=== PATIENT | female | born 1940 | race Caucasian/White ===

== ENCOUNTER 2017-09-21 15:04 | Inpatient (IN) ==
[2017-09-21] MEDS ORDERED: ALBUTEROL/IPRATROPIUM 3 ML NEB RESP TX PRN (15:09)
[2017-09-21] MEDS ORDERED: AMINOPHYLLINE 250 MG in SODIUM CHLORIDE 0.9% 100 ML IV ONE (17:00)
[2017-09-21 17:15] LABS: Basophils # 0.1 10*3/uL (0.0-0.2); Basophils % 0.8 % (0.0-0.8); Eosinophils # 0.1 10*3/uL (0.0-0.87); Eosinophils % 0.8 % (0.00-10.9); Hematocrit 41.9 VOL% (35.7-47.0); Hemoglobin 13.6 GM/DL (12.0-16.0); Immature Granulocytes % 0.6 %; Immature Granulocytes Absolute 0.04 #; Lymphocytes # 0.9 10*3/uL (1.4-4.0); Lymphocytes % 13.5 % (21.3-54.2); Mean Corpuscular HGB Conc 32.5 GM/DL (32-36); Mean Corpuscular Hemoglobin 29 PG (27-34); Mean Corpuscular Volume 90.7 FL (87-102); Monocytes # 0.4 10*3/uL (0.11-0.8); Neutrophils # 4.9 10*3/uL (1.4-7.4); Neutrophils % 78.3 % (38.7-73.9); Platelet Count 187 T/CUMM (130-400); Red Blood Count 4.62 MC/CUMM (3.8-5.5); Red Cell Distribution Width 14.9 % (9.3-17.3); White Blood Count 6.3 T/CUMM (4-12)
[2017-09-21 17:49] LABS: Alanine Aminotransferase 21 U/L (13-56); Albumin 3.8 G/DL (3.4-5.0); Alkaline Phosphatase 86 U/L (45-117); Aspartate Amino Transferase 18 U/L (0-37); Bilirubin,Total < 0.39 MG/DL (0.2-1.0); Blood Urea Nitrogen 7 MG/DL (7-18); Calcium 8.8 MG/DL (8.5-10.1); Glucose 187 MG/DL (74-106); Osmolality,Calculated 270.2 MOS/KG (273-304); Potassium 4.5 MMOL/L (3.5-5.1); Sodium 134 MMOL/L (136-145); Thyroid Stimulating Hormone 0.611 uIU/ml (0.358-3.74); Total Protein 7.1 G/DL (6.4-8.3)
[2017-09-21] MEDS: DORNASE ALFA 2.5 MG/2.5 ML VIAL RESP TX SCH (20:28)
[2017-09-21] MEDS: ALBUTEROL/IPRATROPIUM 3 ML NEB RESP TX SCH (20:28)
[2017-09-21] MEDS: cefTAZidime 1,000 MG in SYRINGE 1 EACH IV SCH (21:15)
[2017-09-21] MEDS: methylPREDNISolone SOD SUC 40 MG/1 ML VIAL IV SCH (21:18)
[2017-09-21] MEDS: LEVOFLOXACIN INJ 500 MG in PREMIX 1 EACH IV SCH (21:22)
[2017-09-21] MEDS: DEXTROSE 5% NACL 0.45% 1,000 ML IV SCH (21:22)
[2017-09-21] MEDS: TEMAZEPAM 15 MG CAPSULE PO SCH (21:24)
[2017-09-21] MEDS: BENZONATATE 100 MG CAPSULE PO SCH (21:25)
[2017-09-21] MEDS: MONTELUKAST 10 MG TABLET PO SCH (21:25)
[2017-09-22] MEDS: AMINOPHYLLINE 500 MG in SODIUM CHLORIDE 0.9% 480 ML IV SCH ×2 (01:10→20:31)
[2017-09-22 05:08] LABS: Basophils % 0.2 % (0.0-0.8); Hematocrit 41.3 VOL% (35.7-47.0); Hemoglobin 13.6 GM/DL (12.0-16.0); Immature Granulocytes % 0.6 %; Immature Granulocytes Absolute 0.03 #; Lymphocytes % 19.6 % (21.3-54.2); Mean Corpuscular HGB Conc 32.9 GM/DL (32-36); Mean Corpuscular Hemoglobin 30 PG (27-34); Mean Corpuscular Volume 89.6 FL (87-102); Mean Platelet Volume 9.5 FL (9.6-12.0); Monocytes # 0.1 10*3/uL (0.11-0.8); Monocytes % 2.2 % (1.7-12.7); Neutrophils # 3.8 10*3/uL (1.4-7.4); Neutrophils % 77.4 % (38.7-73.9); Platelet Count 238 T/CUMM (130-400); Red Blood Count 4.61 MC/CUMM (3.8-5.5); Red Cell Distribution Width 14.7 % (9.3-17.3); White Blood Count 4.9 T/CUMM (4-12)
[2017-09-22 05:40] LABS: Calcium 9.2 MG/DL (8.5-10.1); Osmolality,Calculated 275.8 MOS/KG (273-304); Potassium 4.4 MMOL/L (3.5-5.1)
[2017-09-22] MEDS: methylPREDNISolone SOD SUC 40 MG/1 ML VIAL IV SCH ×3 (05:58→20:30)
[2017-09-22] MEDS: cefTAZidime 1,000 MG in SYRINGE 1 EACH IV SCH ×3 (06:00→20:30)
[2017-09-22 06:11] LABS: Apearance,Urine CLEAR (Clear); Bilirubin,Urine Negative (Negative); Blood, Urine Negative (Negative); Glucose,Urine (UA) Negative (Negative); Ketones,Urine Negative (Negative); Nitrite,Urine Negative (Negative); Protein,Urine Negative; RBC,Urine <1 /HPF (0-4); Urine Color Yellow (Yellow); Urine Specific Gravity 1.008 (1.001-1.035); WBC,Urine <1 /HPF (0-6)
[2017-09-22] MEDS: DORNASE ALFA 2.5 MG/2.5 ML VIAL RESP TX SCH ×2 (07:20→19:37)
[2017-09-22] MEDS: ALBUTEROL/IPRATROPIUM 3 ML NEB RESP TX SCH ×4 (07:20→19:37)
[2017-09-22] MEDS: MONTELUKAST 10 MG TABLET PO SCH ×2 (08:32→20:29)
[2017-09-22] MEDS: BENZONATATE 100 MG CAPSULE PO SCH ×3 (08:32→20:29)
[2017-09-22] MEDS ORDERED: NITROGLYCERIN SL 0.4 MG TABLET SL PRN (11:15)
[2017-09-22] MEDS: ALBUTEROL 2 MG TABLET PO SCH ×3 (11:41→21:34)
[2017-09-22] MEDS: amLODIPine 5 MG TABLET PO SCH (11:41)
[2017-09-22] MEDS: FLUTICASONE 50 MCG NASAL SPRAY 16 GM BOTTLE BOTH NARES SCH (12:44)
[2017-09-22] MEDS: DEXTROSE 5% NACL 0.45% 1,000 ML IV SCH (14:43)
[2017-09-22] MEDS: TEMAZEPAM 15 MG CAPSULE PO SCH (20:29)
[2017-09-22] MEDS: ATORVASTATIN 10 MG TABLET PO SCH (20:29)
[2017-09-22] MEDS: LEVOFLOXACIN INJ 500 MG in PREMIX 1 EACH IV SCH (21:51)
[2017-09-23] MEDS: AMINOPHYLLINE 500 MG in SODIUM CHLORIDE 0.9% 480 ML IV SCH ×2 (00:07→21:38)
[2017-09-23] MEDS: cefTAZidime 1,000 MG in SYRINGE 1 EACH IV SCH ×3 (05:45→21:39)
[2017-09-23] MEDS: ALBUTEROL 2 MG TABLET PO SCH ×3 (05:45→21:39)
[2017-09-23] MEDS: methylPREDNISolone SOD SUC 40 MG/1 ML VIAL IV SCH ×3 (05:45→21:40)
[2017-09-23] MEDS: LEVOTHYROXINE 88 MCG TABLET PO SCH (05:45)
[2017-09-23] MEDS: ALBUTEROL/IPRATROPIUM 3 ML NEB RESP TX SCH ×4 (07:13→19:21)
[2017-09-23] MEDS: DORNASE ALFA 2.5 MG/2.5 ML VIAL RESP TX SCH ×2 (07:13→19:21)
[2017-09-23] MEDS: BENZONATATE 100 MG CAPSULE PO SCH ×3 (08:14→21:39)
[2017-09-23] MEDS: DEXTROSE 5% NACL 0.45% 1,000 ML IV SCH (08:14)
[2017-09-23] MEDS: amLODIPine 5 MG TABLET PO SCH (08:14)
[2017-09-23] MEDS: MONTELUKAST 10 MG TABLET PO SCH ×2 (08:15→21:39)
[2017-09-23] MEDS: PANTOPRAZOLE 40 MG TABLET PO SCH (08:15)
[2017-09-23] MEDS: FLUTICASONE 50 MCG NASAL SPRAY 16 GM BOTTLE BOTH NARES SCH (08:16)
[2017-09-23] MEDS ORDERED: SODIUM CHLORIDE 0.9% 100 ML IV ONE (19:47)
[2017-09-23] MEDS: TEMAZEPAM 15 MG CAPSULE PO SCH (21:39)
[2017-09-23] MEDS: ATORVASTATIN 10 MG TABLET PO SCH (21:39)
[2017-09-23] MEDS: LEVOFLOXACIN INJ 500 MG in PREMIX 1 EACH IV SCH (22:57)
[2017-09-24] MEDS: DEXTROSE 5% NACL 0.45% 1,000 ML IV SCH ×2 (00:23→17:09)
[2017-09-24] MEDS ORDERED: SODIUM CHLORIDE 0.9% 100 ML IV ONE (05:29)
[2017-09-24] MEDS: LEVOTHYROXINE 88 MCG TABLET PO SCH (05:46)
[2017-09-24] MEDS: ALBUTEROL 2 MG TABLET PO SCH ×3 (05:46→21:11)
[2017-09-24] MEDS: cefTAZidime 1,000 MG in SYRINGE 1 EACH IV SCH ×3 (05:47→21:12)
[2017-09-24] MEDS: methylPREDNISolone SOD SUC 40 MG/1 ML VIAL IV SCH ×3 (05:47→21:12)
[2017-09-24] MEDS: DORNASE ALFA 2.5 MG/2.5 ML VIAL RESP TX SCH ×2 (07:32→19:50)
[2017-09-24] MEDS: ALBUTEROL/IPRATROPIUM 3 ML NEB RESP TX SCH ×4 (07:32→19:50)
[2017-09-24] MEDS: MONTELUKAST 10 MG TABLET PO SCH ×2 (09:35→21:12)
[2017-09-24] MEDS: BENZONATATE 100 MG CAPSULE PO SCH ×3 (09:35→21:12)
[2017-09-24] MEDS: PANTOPRAZOLE 40 MG TABLET PO SCH (09:35)
[2017-09-24] MEDS: amLODIPine 5 MG TABLET PO SCH (09:35)
[2017-09-24] MEDS: FLUTICASONE 50 MCG NASAL SPRAY 16 GM BOTTLE BOTH NARES SCH (09:36)
[2017-09-24] MEDS: ATORVASTATIN 10 MG TABLET PO SCH (21:12)
[2017-09-24] MEDS: TEMAZEPAM 15 MG CAPSULE PO SCH (21:12)
[2017-09-24] MEDS: LEVOFLOXACIN INJ 500 MG in PREMIX 1 EACH IV SCH (22:19)
[2017-09-25] MEDS: LEVOTHYROXINE 88 MCG TABLET PO SCH (05:35)
[2017-09-25] MEDS: ALBUTEROL 2 MG TABLET PO SCH ×4 (05:35→22:12)
[2017-09-25] MEDS: cefTAZidime 1,000 MG in SYRINGE 1 EACH IV SCH ×3 (05:35→20:32)
[2017-09-25] MEDS: methylPREDNISolone SOD SUC 40 MG/1 ML VIAL IV SCH ×3 (05:35→20:37)
[2017-09-25] MEDS: ALBUTEROL/IPRATROPIUM 3 ML NEB RESP TX SCH ×4 (07:59→19:44)
[2017-09-25] MEDS: DORNASE ALFA 2.5 MG/2.5 ML VIAL RESP TX SCH ×2 (08:01→19:58)
[2017-09-25] MEDS: FLUTICASONE 50 MCG NASAL SPRAY 16 GM BOTTLE BOTH NARES SCH (08:41)
[2017-09-25] MEDS: amLODIPine 5 MG TABLET PO SCH (08:42)
[2017-09-25] MEDS: MONTELUKAST 10 MG TABLET PO SCH ×2 (08:42→20:34)
[2017-09-25] MEDS: BENZONATATE 100 MG CAPSULE PO SCH ×3 (08:42→20:33)
[2017-09-25] MEDS: DEXTROSE 5% NACL 0.45% 1,000 ML IV SCH (08:42)
[2017-09-25] MEDS: PANTOPRAZOLE 40 MG TABLET PO SCH (08:42)
[2017-09-25] MEDS: DICLOFENAC 1.3% PATCH 5/PACK TRANSDERM SCH ×2 (11:57→20:35)
[2017-09-25] MEDS: AMINOPHYLLINE 500 MG in SODIUM CHLORIDE 0.9% 480 ML IV SCH (11:57)
[2017-09-25] MEDS: TEMAZEPAM 15 MG CAPSULE PO SCH (20:34)
[2017-09-25] MEDS: ATORVASTATIN 10 MG TABLET PO SCH (20:34)
[2017-09-25] MEDS: LEVOFLOXACIN INJ 500 MG in PREMIX 1 EACH IV SCH (21:42)
[2017-09-26] MEDS: DEXTROSE 5% NACL 0.45% 1,000 ML IV SCH ×2 (03:52→05:19)
[2017-09-26] MEDS: methylPREDNISolone SOD SUC 40 MG/1 ML VIAL IV SCH ×3 (05:17→21:41)
[2017-09-26] MEDS: ALBUTEROL 2 MG TABLET PO SCH ×2 (05:17→14:55)
[2017-09-26] MEDS: LEVOTHYROXINE 88 MCG TABLET PO SCH ×2 (05:17→06:15)
[2017-09-26] MEDS: cefTAZidime 1,000 MG in SYRINGE 1 EACH IV SCH ×3 (05:18→21:47)
[2017-09-26] MEDS: ALBUTEROL/IPRATROPIUM 3 ML NEB RESP TX SCH ×4 (07:43→19:20)
[2017-09-26] MEDS: DORNASE ALFA 2.5 MG/2.5 ML VIAL RESP TX SCH ×2 (08:00→19:27)
[2017-09-26] MEDS: MONTELUKAST 10 MG TABLET PO SCH ×2 (09:51→21:40)
[2017-09-26] MEDS: BENZONATATE 100 MG CAPSULE PO SCH ×3 (09:51→21:40)
[2017-09-26] MEDS: amLODIPine 5 MG TABLET PO SCH (09:51)
[2017-09-26] MEDS: DICLOFENAC 1.3% PATCH 5/PACK TRANSDERM SCH (09:51)
[2017-09-26] MEDS: PANTOPRAZOLE 40 MG TABLET PO SCH (09:51)
[2017-09-26] MEDS: FLUTICASONE 50 MCG NASAL SPRAY 16 GM BOTTLE BOTH NARES SCH (09:51)
[2017-09-26] MEDS ORDERED: MAGNESIUM HYDROXIDE SUSP 30 ML UDCUP PO PRN (09:54)
[2017-09-26] MEDS ORDERED: KETOROLAC 15 MG/1 ML VIAL IV ONE (10:53)
[2017-09-26] MEDS: AMINOPHYLLINE 500 MG in SODIUM CHLORIDE 0.9% 480 ML IV SCH (18:15)
[2017-09-26] MEDS: TEMAZEPAM 15 MG CAPSULE PO SCH (21:40)
[2017-09-26] MEDS: ATORVASTATIN 10 MG TABLET PO SCH (21:41)
[2017-09-26] MEDS: LEVOFLOXACIN INJ 500 MG in PREMIX 1 EACH IV SCH (21:52)
[2017-09-27] MEDS: DICLOFENAC 1.3% PATCH 5/PACK TRANSDERM SCH ×4 (02:42→21:37)
[2017-09-27] MEDS: methylPREDNISolone SOD SUC 40 MG/1 ML VIAL IV SCH ×4 (06:05→21:40)
[2017-09-27] MEDS: DEXTROSE 5% NACL 0.45% 1,000 ML IV SCH (06:06)
[2017-09-27] MEDS: ALBUTEROL 2 MG TABLET PO SCH ×4 (06:08→21:36)
[2017-09-27] MEDS: cefTAZidime 1,000 MG in SYRINGE 1 EACH IV SCH (06:09)
[2017-09-27] MEDS: LEVOTHYROXINE 88 MCG TABLET PO SCH (06:10)
[2017-09-27] MEDS: DORNASE ALFA 2.5 MG/2.5 ML VIAL RESP TX SCH ×2 (07:14→19:51)
[2017-09-27] MEDS: ALBUTEROL/IPRATROPIUM 3 ML NEB RESP TX SCH ×4 (07:14→19:51)
[2017-09-27] MEDS: PANTOPRAZOLE 40 MG TABLET PO SCH (09:16)
[2017-09-27] MEDS: MONTELUKAST 10 MG TABLET PO SCH ×2 (09:16→21:36)
[2017-09-27] MEDS: BENZONATATE 100 MG CAPSULE PO SCH ×3 (09:16→21:36)
[2017-09-27] MEDS: amLODIPine 5 MG TABLET PO SCH (09:16)
[2017-09-27] MEDS: FLUTICASONE 50 MCG NASAL SPRAY 16 GM BOTTLE BOTH NARES SCH (09:16)
[2017-09-27] MEDS ORDERED: DICLOFENAC 1.3% PATCH 5/PACK TRANSDERM SCH (10:30)
[2017-09-27] MEDS: LEVOFLOXACIN 500 MG TABLET PO SCH (11:58)
[2017-09-27] MEDS: AMINOPHYLLINE 500 MG in SODIUM CHLORIDE 0.9% 480 ML IV SCH ×2 (11:59→12:01)
[2017-09-27] MEDS: TEMAZEPAM 15 MG CAPSULE PO SCH (21:36)
[2017-09-27] MEDS: CEFUROXIME 500 MG TABLET PO SCH (21:36)
[2017-09-27] MEDS: ATORVASTATIN 10 MG TABLET PO SCH (21:36)
[2017-09-27] MEDS: DILTIAZEM 30 MG TABLET PO SCH (23:10)
[2017-09-28] MEDS: ALBUTEROL 2 MG TABLET PO SCH ×3 (05:43→21:36)
[2017-09-28] MEDS: LEVOTHYROXINE 88 MCG TABLET PO SCH (05:43)
[2017-09-28] MEDS: methylPREDNISolone SOD SUC 40 MG/1 ML VIAL IV SCH ×3 (05:43→21:34)
[2017-09-28 06:23] LABS: Basophils # 0.1 10*3/uL (0.0-0.2); Basophils % 0.5 % (0.0-0.8); Hematocrit 39.3 VOL% (35.7-47.0); Hemoglobin 12.8 GM/DL (12.0-16.0); Immature Granulocytes Absolute 1.09 #; Lymphocytes # 1.2 10*3/uL (1.4-4.0); Lymphocytes % 6.5 % (21.3-54.2); Mean Corpuscular HGB Conc 32.6 GM/DL (32-36); Mean Corpuscular Hemoglobin 29 PG (27-34); Mean Corpuscular Volume 89.9 FL (87-102); Mean Platelet Volume 9.6 FL (9.6-12.0); Monocytes # 0.8 10*3/uL (0.11-0.8); Monocytes % 4.6 % (1.7-12.7); NRBC # 0.03 10*3/uL; Neutrophils % 82.4 % (38.7-73.9); Platelet Count 253 T/CUMM (130-400); Red Blood Count 4.37 MC/CUMM (3.8-5.5); Red Cell Distribution Width 14.6 % (9.3-17.3); White Blood Count 18.2 T/CUMM (4-12)
[2017-09-28 06:27] LABS: Calcium 8.4 MG/DL (8.5-10.1); Potassium 4.6 MMOL/L (3.5-5.1)
[2017-09-28 06:50] LABS: Band Neutrophils 2 % (0-10); Lymphocytes 3 % (20-55); Metamyelocytes 1 %; Platelet Estimate Adequate; Segmented Neutrophils 91 % (50-85); Total Cells Counted 100
[2017-09-28 06:51] LABS: Polychromasia Slight
[2017-09-28] MEDS: DORNASE ALFA 2.5 MG/2.5 ML VIAL RESP TX SCH ×2 (07:47→20:16)
[2017-09-28] MEDS: ALBUTEROL/IPRATROPIUM 3 ML NEB RESP TX SCH ×4 (07:47→20:16)
[2017-09-28] MEDS: MONTELUKAST 10 MG TABLET PO SCH ×2 (08:04→21:34)
[2017-09-28] MEDS: DILTIAZEM 30 MG TABLET PO SCH (08:05)
[2017-09-28] MEDS: PANTOPRAZOLE 40 MG TABLET PO SCH (08:05)
[2017-09-28] MEDS: amLODIPine 5 MG TABLET PO SCH (08:05)
[2017-09-28] MEDS: BENZONATATE 100 MG CAPSULE PO SCH ×3 (08:05→21:35)
[2017-09-28] MEDS: CEFUROXIME 500 MG TABLET PO SCH ×2 (08:05→21:34)
[2017-09-28] MEDS: DICLOFENAC 1.3% PATCH 5/PACK TRANSDERM SCH ×2 (08:06→21:34)
[2017-09-28] MEDS: FLUTICASONE 50 MCG NASAL SPRAY 16 GM BOTTLE BOTH NARES SCH (08:06)
[2017-09-28] MEDS: THEOPHYLLINE ER 300 MG TABLET PO SCH ×2 (11:48→17:45)
[2017-09-28] MEDS: LEVOFLOXACIN 500 MG TABLET PO SCH (11:49)
[2017-09-28] MEDS: DILTIAZEM CD 180 MG CAPSULE PO SCH (14:37)
[2017-09-28] MEDS: TEMAZEPAM 15 MG CAPSULE PO SCH (21:34)
[2017-09-28] MEDS: ATORVASTATIN 10 MG TABLET PO SCH (21:35)
[2017-09-29] MEDS: methylPREDNISolone SOD SUC 40 MG/1 ML VIAL IV SCH ×2 (05:58→12:21)
[2017-09-29] MEDS: LEVOTHYROXINE 88 MCG TABLET PO SCH (05:58)
[2017-09-29] MEDS: ALBUTEROL 2 MG TABLET PO SCH (05:58)
[2017-09-29] MEDS: ALBUTEROL/IPRATROPIUM 3 ML NEB RESP TX SCH ×2 (08:04→11:47)
[2017-09-29] MEDS: DORNASE ALFA 2.5 MG/2.5 ML VIAL RESP TX SCH (08:04)
[2017-09-29] MEDS: THEOPHYLLINE ER 300 MG TABLET PO SCH (09:17)
[2017-09-29] MEDS: BENZONATATE 100 MG CAPSULE PO SCH (09:17)
[2017-09-29] MEDS: DILTIAZEM CD 180 MG CAPSULE PO SCH (09:18)
[2017-09-29] MEDS: CEFUROXIME 500 MG TABLET PO SCH (09:19)
[2017-09-29] MEDS: PANTOPRAZOLE 40 MG TABLET PO SCH (09:19)
[2017-09-29] MEDS: amLODIPine 5 MG TABLET PO SCH (09:19)
[2017-09-29] MEDS: DICLOFENAC 1.3% PATCH 5/PACK TRANSDERM SCH (09:19)
[2017-09-29] MEDS: MONTELUKAST 10 MG TABLET PO SCH (09:19)
[2017-09-29] MEDS: FLUTICASONE 50 MCG NASAL SPRAY 16 GM BOTTLE BOTH NARES SCH (09:20)
[2017-09-29 11:05] VITALS: BP 116/68
[2017-09-29] MEDS: LEVOFLOXACIN 500 MG TABLET PO SCH (12:21)
== END 2017-09-29 15:43 | disposition home or self-care (01) | DRG 190 ==
LOC: N.5E 16:01
PROVIDERS: ADMIT Internal Medicine Pulmonary Disease; ATTEND Internal Medicine Pulmonary Disease

== ENCOUNTER 2019-07-19 06:11 | Observation (INO) ==
[2019-07-19] MEDS ORDERED: ALUM/MAG/SIMETH/LIDO VISC 1:1 30 ML BOTTLE PO STA (06:38)
[2019-07-19] MEDS ORDERED: ONDANSETRON 4 MG/2 ML VIAL IV STA (06:38)
[2019-07-19 07:00] LABS: Basophils % 0.2 % (0.0-0.8); Hematocrit 42.5 VOL% (35.7-47.0); Hemoglobin 14.3 GM/DL (12.0-16.0); Immature Granulocytes % 0.4 %; Immature Granulocytes Absolute 0.09 #; Lymphocytes # 2.2 10*3/uL (1.4-4.0); Lymphocytes % 11.1 % (21.3-54.2); Mean Corpuscular HGB Conc 33.6 GM/DL (32-36); Mean Corpuscular Volume 89.5 FL (87-102); Mean Platelet Volume 9.8 FL (9.6-12.0); Monocytes % 5.9 % (1.7-12.7); Neutrophils % 82.4 % (38.7-73.9); Platelet Count 243 T/CUMM (130-400); Red Blood Count 4.75 MC/CUMM (3.8-5.5); Red Cell Distribution Width 13.4 % (9.3-17.3)
[2019-07-19 07:21] LABS: Band Neutrophils 5 % (0-10); Lymphocytes 19 % (20-55); Segmented Neutrophils 73 % (50-85); Total Cells Counted 100
[2019-07-19 07:22] LABS: Atypical Lymphocytes Few; Hypochromasia 1+; Platelet Estimate Normal
[2019-07-19 07:52] LABS: Albumin 3.7 G/DL (3.4-5.0); Bilirubin,Total 0.4 MG/DL (0.2-1.0); Calcium 8.8 MG/DL (8.5-10.1); Osmolality,Calculated 274.7 MOS/KG (273-304); Total Protein 6.7 G/DL (6.4-8.3)
[2019-07-19 09:03] LABS: Apearance,Urine CLEAR (Clear); Bilirubin,Urine Negative (Negative); Blood, Urine Negative (Negative); Glucose,Urine (UA) Negative (Negative); Ketones,Urine Negative (Negative); Mucus,Urine Occasional /LPF (Occasional); Nitrite,Urine Negative (Negative); Protein,Urine Negative; RBC,Urine 4 /HPF (0-4); Squamous Epithelial Cell,Urine Occasional /HPF (0-10); Urine Color Yellow (Yellow); Urine Specific Gravity 1.016 (1.001-1.035); Urine Urobilinogen < 2.0 EU/DL (0.2-1.0); WBC,Urine 1 /HPF (0-6)
[2019-07-19] MEDS ORDERED: PIPERACILLIN/TAZOBACTAM 3,375 MG in SODIUM CHLORIDE 0.9% 100 ML IV STA (10:35)
[2019-07-19] MEDS ORDERED: SIMETHICONE CHEW 125 MG TABLET PO PRN (11:36)
[2019-07-19] MEDS ORDERED: LACTULOSE 20 GM/30 ML UDCUP PO PRN (11:36)
[2019-07-19] MEDS ORDERED: ONDANSETRON 4 MG/2 ML VIAL IV PRN (11:36)
[2019-07-19] MEDS ORDERED: ACETAMINOPHEN 325 MG TABLET PO PRN (11:36)
[2019-07-19 13:03] LABS: Risk Ratio 2.48
[2019-07-19] MEDS ORDERED: FLUTICASONE 50 MCG NASAL SPRAY 16 GM BOTTLE BOTH NARES PRN (15:04)
[2019-07-19] MEDS ORDERED: ALBUTEROL/IPRATROPIUM 3 ML NEB RESP TX PRN (15:08)
[2019-07-19] MEDS ORDERED: BUPIVACAINE MPF 0.25% 30 ML VIAL ONE (15:26)
[2019-07-19] MEDS ORDERED: TISSUE ADHESIVE 1 EACH APPLICATOR TOP ONE (15:26)
[2019-07-19] MEDS ORDERED: LIDOCAINE 1%/EPI INJ 20 ML VIAL ONE (15:26)
[2019-07-19] MEDS ORDERED: SUGAMMADEX 200 MG/2 ML VIAL IV ONE (17:27)
[2019-07-19] MEDS ORDERED: propofoL 200 MG/20 ML VIAL IV ONE (17:55)
[2019-07-19] MEDS ORDERED: SEVOFLURANE 1 UNIT/15 MINUTE INH ONE (17:55)
[2019-07-19] MEDS ORDERED: LIDOCAINE 2% 5 ML VIAL ONE (17:55)
[2019-07-19] MEDS ORDERED: PHENYLEPHRINE 1 MG/10 ML SYRINGE IV ONE (17:56)
[2019-07-19] MEDS ORDERED: fentaNYL 100 MCG/2 ML VIAL ONE (17:56)
[2019-07-19] MEDS ORDERED: DEXAMETHASONE 4 MG/1 ML VIAL ONE (17:56)
[2019-07-19] MEDS ORDERED: ROCURONIUM 100 MG/10 ML VIAL IV ONE (17:56)
[2019-07-19] MEDS ORDERED: ONDANSETRON 4 MG/2 ML VIAL ONE (17:56)
[2019-07-19] MEDS: PIPERACILLIN/TAZOBACTAM 3,375 MG in SODIUM CHLORIDE 0.9% 100 ML IV SCH (19:40)
[2019-07-19] MEDS: ALBUTEROL/IPRATROPIUM 3 ML NEB RESP TX SCH (20:20)
[2019-07-20] MEDS: ALBUTEROL/IPRATROPIUM 3 ML NEB RESP TX SCH ×7 (00:01→23:25)
[2019-07-20] MEDS: PIPERACILLIN/TAZOBACTAM 3,375 MG in SODIUM CHLORIDE 0.9% 100 ML IV SCH ×2 (01:46→12:22)
[2019-07-20 02:16] LABS: Basophils % 0.2 % (0.0-0.8); Hematocrit 38.7 VOL% (35.7-47.0); Hemoglobin 12.6 GM/DL (12.0-16.0); Immature Granulocytes % 0.3 %; Immature Granulocytes Absolute 0.03 #; Lymphocytes % 8.9 % (21.3-54.2); Mean Corpuscular HGB Conc 32.6 GM/DL (32-36); Mean Corpuscular Volume 91.1 FL (87-102); Mean Platelet Volume 9.8 FL (9.6-12.0); Monocytes % 4.8 % (1.7-12.7); Neutrophils % 85.8 % (38.7-73.9); Platelet Count 190 T/CUMM (130-400); Red Blood Count 4.25 MC/CUMM (3.8-5.5); Red Cell Distribution Width 13.8 % (9.3-17.3); White Blood Count 10.8 T/CUMM (4-12)
[2019-07-20 02:28] LABS: Bilirubin,Total 1.3 MG/DL (0.2-1.0); Calcium 8.5 MG/DL (8.5-10.1); Osmolality,Calculated 273.8 MOS/KG (273-304); Total Protein 6.2 G/DL (6.4-8.3)
[2019-07-20] MEDS ORDERED: LEVOTHYROXINE 88 MCG TABLET PO SCH (06:30)
[2019-07-20] MEDS: MONTELUKAST 10 MG TABLET PO SCH (10:05)
[2019-07-20] MEDS: PARoxetine 20 MG TABLET PO SCH (10:05)
[2019-07-20] MEDS: PANTOPRAZOLE 40 MG TABLET PO SCH (10:05)
[2019-07-21] MEDS: PIPERACILLIN/TAZOBACTAM 3,375 MG in SODIUM CHLORIDE 0.9% 100 ML IV SCH (01:15)
[2019-07-21] MEDS: ALBUTEROL/IPRATROPIUM 3 ML NEB RESP TX SCH ×2 (03:12→08:27)
[2019-07-21 05:11] LABS: Basophils % 0.4 % (0.0-0.8); Hematocrit 33.3 VOL% (35.7-47.0); Hemoglobin 10.9 GM/DL (12.0-16.0); Immature Granulocytes % 0.3 %; Immature Granulocytes Absolute 0.03 #; Lymphocytes # 3.4 10*3/uL (1.4-4.0); Lymphocytes % 34.3 % (21.3-54.2); Mean Corpuscular HGB Conc 32.7 GM/DL (32-36); Mean Corpuscular Volume 91.5 FL (87-102); Platelet Count 181 T/CUMM (130-400); Red Blood Count 3.64 MC/CUMM (3.8-5.5); Red Cell Distribution Width 14.3 % (9.3-17.3)
[2019-07-21 05:39] LABS: Albumin 2.7 G/DL (3.4-5.0); Bilirubin,Total 0.7 MG/DL (0.2-1.0); Osmolality,Calculated 281.1 MOS/KG (273-304); Total Protein 5.5 G/DL (6.4-8.3)
[2019-07-21] MEDS ORDERED: LEVOTHYROXINE 75 MCG TABLET PO SCH (06:30)
[2019-07-21] MEDS ORDERED: POTASSIUM CHLORIDE 20 MEQ TABLET PO PRN (07:07)
[2019-07-21] MEDS: MONTELUKAST 10 MG TABLET PO SCH (08:05)
[2019-07-21] MEDS: PARoxetine 20 MG TABLET PO SCH (08:05)
[2019-07-21] MEDS: PANTOPRAZOLE 40 MG TABLET PO SCH (08:05)
[2019-07-21 09:33] VITALS: BP 117/64
== END 2019-07-21 10:22 | disposition home or self-care (01) ==
LOC: N.EDINP 06:11 → N.ED 06:11 → N.5E 13:22
PROVIDERS: ADMIT Family Medicine; ATTEND Family Medicine
PROC: LAPCHOL (2019-07-19 16:01)